=== PATIENT | male | born 1945 | race African-American/Black ===

== ENCOUNTER 2020-03-29 19:36 | Inpatient (IN) ==
[2020-03-29] MEDS ORDERED: FUROSEMIDE 40 MG/4 ML VIAL IV STA (21:53)
[2020-03-29 22:09] LABS: Albumin 3.7 G/DL (3.4-5.0); Calcium 9.4 MG/DL (8.5-10.1); Total Protein 7.4 G/DL (6.4-8.3)
[2020-03-29 22:13] LABS: Basophils % 0.7 % (0.0-0.8); Eosinophils % 0.2 % (0.00-10.9); Hematocrit 41.7 VOL% (42.0-52.0); Immature Granulocytes % 0.5 %; Immature Granulocytes Absolute 0.03 #; Lymphocytes # 0.4 10*3/uL (1.4-4.0); Lymphocytes % 6.8 % (21.2-54.2); Mean Corpuscular HGB Conc 31.2 GM/DL (32-36); Mean Corpuscular Volume 90.8 FL (87-102); Mean Platelet Volume 10.2 FL (9.6-12.0); Monocytes % 4.4 % (1.7-12.7); Neutrophils % 87.4 % (38.7-73.9); Platelet Count 247 T/CUMM (130-400); Red Blood Count 4.59 MC/CUMM (3.8-5.5); Red Cell Distribution Width 17.5 % (9.3-17.3); White Blood Count 5.9 T/CUMM (4-12)
[2020-03-29 22:22] LABS: INR 1.1; PT Patient Result 11.7 SECS (9.8-11.9); Partial Thromboplastin Time 28.2 SECS (23.9-33.8)
[2020-03-29] MEDS ORDERED: ONDANSETRON 4 MG/2 ML VIAL IV PRN (23:16)
[2020-03-29] MEDS ORDERED: GLUCAGON 1 MG VIAL IM PRN (23:16)
[2020-03-29] MEDS ORDERED: DEXTROSE 50% 25 GM/50 ML VIAL IV PRN (23:16)
[2020-03-29] MEDS ORDERED: MAGNESIUM SULF RIDER 4 GM in PREMIX 1 EACH IV PRN (23:16)
[2020-03-29] MEDS ORDERED: ACETAMINOPHEN 325 MG TABLET PO PRN (23:16)
[2020-03-29] MEDS ORDERED: MAGNESIUM SULF RIDER 2 GM in PREMIX 1 EACH IV PRN (23:16)
[2020-03-29] MEDS ORDERED: ENOXAPARIN 40 MG/0.4 ML SYRINGE SUBCUT SCH (23:30)
[2020-03-30 07:52] LABS: Basophils # 0.1 10*3/uL (0.0-0.2); Basophils % 0.8 % (0.0-0.8); Eosinophils % 0.3 % (0.00-10.9); Immature Granulocytes % 0.2 %; Immature Granulocytes Absolute 0.01 #; Lymphocytes # 1.1 10*3/uL (1.4-4.0); Mean Corpuscular HGB Conc 31.7 GM/DL (32-36); Mean Corpuscular Volume 90.5 FL (87-102); Mean Platelet Volume 10.3 FL (9.6-12.0); Monocytes % 10.5 % (1.7-12.7); Neutrophils % 69.2 % (38.7-73.9); Platelet Count 219 T/CUMM (130-400); Red Blood Count 4.53 MC/CUMM (3.8-5.5); Red Cell Distribution Width 17.6 % (9.3-17.3); White Blood Count 5.9 T/CUMM (4-12)
[2020-03-30] MEDS: FUROSEMIDE 40 MG/4 ML VIAL IV SCH ×2 (08:32→16:22)
[2020-03-30] MEDS: PANTOPRAZOLE 40 MG TABLET PO SCH (09:20)
[2020-03-30 10:19] LABS: Albumin 3.6 G/DL (3.4-5.0); Bilirubin,Total 2.4 MG/DL (0.2-1.0); Osmolality,Calculated 290.8 MOS/KG (273-304); Risk Ratio 2.13; Total Protein 6.9 G/DL (6.4-8.3); VLDL CHOLESTEROL 10.8 MG/DL
[2020-03-30] MEDS ORDERED: POTASSIUM CHLORIDE 10 MEQ TABLET PO SCH (12:00)
[2020-03-30] MEDS ORDERED: ENOXAPARIN 30 MG/0.3 ML SYRINGE SUBCUT SCH (14:00)
[2020-03-30] MEDS: SPIRONOLACTONE 25 MG TABLET PO SCH (14:27)
[2020-03-30] MEDS: COLCHICINE 0.6 MG CAPSULE PO SCH (14:27)
[2020-03-30] MEDS: LOSARTAN 50 MG TABLET PO SCH (14:27)
[2020-03-30] MEDS: allopurinoL 100 MG TABLET PO SCH (14:28)
[2020-03-30] MEDS: TICAGRELOR 90 MG TABLET PO SCH ×2 (14:28→21:12)
[2020-03-30] MEDS: LUBIPROSTONE 8 MCG CAPSULE PO SCH ×2 (14:28→21:12)
[2020-03-30] MEDS: carvediloL 12.5 MG TABLET PO SCH (14:28)
[2020-03-30] MEDS: ISOSORBIDE MONONITRATE 30 MG TABLET PO SCH (14:28)
[2020-03-30] MEDS: ASPIRIN EC 81 MG TABLET PO SCH (14:28)
[2020-03-30] MEDS: MIRTAZAPINE 15 MG TABLET PO SCH (21:12)
[2020-03-30] MEDS: SIMVASTATIN 10 MG TABLET PO SCH (21:12)
[2020-03-31 05:51] LABS: Basophils # 0.1 10*3/uL (0.0-0.2); Basophils % 1.1 % (0.0-0.8); Eosinophils # 0.2 10*3/uL (0.0-0.87); Hematocrit 37.8 VOL% (42.0-52.0); Immature Granulocytes % 0.2 %; Immature Granulocytes Absolute 0.01 #; Lymphocytes # 0.9 10*3/uL (1.4-4.0); Lymphocytes % 19.9 % (21.2-54.2); Mean Corpuscular HGB Conc 31.7 GM/DL (32-36); Mean Corpuscular Volume 87.9 FL (87-102); Mean Platelet Volume 9.9 FL (9.6-12.0); Monocytes % 13.8 % (1.7-12.7); Platelet Count 226 T/CUMM (130-400); Red Cell Distribution Width 17.3 % (9.3-17.3); White Blood Count 4.5 T/CUMM (4-12)
[2020-03-31 06:14] LABS: Calcium 8.4 MG/DL (8.5-10.1); Osmolality,Calculated 293.7 MOS/KG (273-304)
[2020-03-31] MEDS: SPIRONOLACTONE 25 MG TABLET PO SCH (08:27)
[2020-03-31] MEDS: TICAGRELOR 90 MG TABLET PO SCH (08:27)
[2020-03-31] MEDS: ASPIRIN EC 81 MG TABLET PO SCH (08:27)
[2020-03-31] MEDS: FUROSEMIDE 40 MG/4 ML VIAL IV SCH (08:27)
[2020-03-31] MEDS: LUBIPROSTONE 8 MCG CAPSULE PO SCH ×2 (08:27→20:35)
[2020-03-31] MEDS: allopurinoL 100 MG TABLET PO SCH (08:28)
[2020-03-31] MEDS: PANTOPRAZOLE 40 MG TABLET PO SCH (08:28)
[2020-03-31] MEDS: carvediloL 12.5 MG TABLET PO SCH (08:28)
[2020-03-31] MEDS: LOSARTAN 50 MG TABLET PO SCH (08:28)
[2020-03-31] MEDS: ISOSORBIDE MONONITRATE 30 MG TABLET PO SCH (08:28)
[2020-03-31] MEDS: COLCHICINE 0.6 MG CAPSULE PO SCH (08:28)
[2020-03-31] MEDS ORDERED: POTASSIUM CHLORIDE 10 MEQ TABLET PO SCH (09:00)
[2020-03-31] MEDS ORDERED: DILTIAZEM 25 MG/5 ML VIAL IV ONE (09:56)
[2020-03-31] MEDS ORDERED: POTASSIUM CHLORIDE 20 MEQ TABLET PO SCH (10:02)
[2020-03-31] MEDS: DILTIAZEM CD 120 MG CAPSULE PO SCH ×2 (11:28→20:35)
[2020-03-31] MEDS: SIMVASTATIN 10 MG TABLET PO SCH (20:35)
[2020-03-31] MEDS: APIXABAN 5 MG TABLET PO SCH (20:36)
[2020-03-31] MEDS: MIRTAZAPINE 15 MG TABLET PO SCH (20:36)
[2020-04-01 05:13] LABS: Basophils % 0.8 % (0.0-0.8); Eosinophils # 0.2 10*3/uL (0.0-0.87); Eosinophils % 3.8 % (0.00-10.9); Hematocrit 36.3 VOL% (42.0-52.0); Hemoglobin 11.2 GM/DL (14.0-18.0); Immature Granulocytes % 0.2 %; Immature Granulocytes Absolute 0.01 #; Lymphocytes # 1.1 10*3/uL (1.4-4.0); Lymphocytes % 21.8 % (21.2-54.2); Mean Corpuscular HGB Conc 30.9 GM/DL (32-36); Mean Corpuscular Volume 90.3 FL (87-102); Mean Platelet Volume 9.8 FL (9.6-12.0); Monocytes % 13.4 % (1.7-12.7); Platelet Count 215 T/CUMM (130-400); Red Blood Count 4.02 MC/CUMM (3.8-5.5); Red Cell Distribution Width 17.2 % (9.3-17.3)
[2020-04-01 05:37] LABS: Calcium 8.4 MG/DL (8.5-10.1); Osmolality,Calculated 290.7 MOS/KG (273-304)
[2020-04-01 08:20] VITALS: BP 129/81
[2020-04-01] MEDS ORDERED: FUROSEMIDE 40 MG/4 ML VIAL IV SCH (09:00)
[2020-04-01] MEDS ORDERED: POTASSIUM CHLORIDE 20 MEQ TABLET PO SCH (09:00)
[2020-04-01] MEDS: APIXABAN 5 MG TABLET PO SCH (10:08)
[2020-04-01] MEDS: ISOSORBIDE MONONITRATE 30 MG TABLET PO SCH (10:08)
[2020-04-01] MEDS: carvediloL 12.5 MG TABLET PO SCH (10:08)
[2020-04-01] MEDS: LOSARTAN 50 MG TABLET PO SCH (10:08)
[2020-04-01] MEDS: allopurinoL 100 MG TABLET PO SCH (10:08)
[2020-04-01] MEDS: SPIRONOLACTONE 25 MG TABLET PO SCH (10:09)
[2020-04-01] MEDS: LUBIPROSTONE 8 MCG CAPSULE PO SCH (10:09)
[2020-04-01] MEDS: DILTIAZEM CD 120 MG CAPSULE PO SCH (10:09)
[2020-04-01] MEDS: ASPIRIN EC 81 MG TABLET PO SCH (10:09)
[2020-04-01] MEDS: PANTOPRAZOLE 40 MG TABLET PO SCH (10:09)
[2020-04-01] MEDS: COLCHICINE 0.6 MG CAPSULE PO SCH (10:10)
== END 2020-04-01 15:30 | disposition home health service (06) | DRG 291 ==
LOC: N.ED 19:36 → N.EDINP 19:36 → N.5E 23:59 → N.3E 03-30 12:57
PROVIDERS: ADMIT Internal Medicine; ATTEND Internal Medicine